=== PATIENT | male | born 1980 | race Caucasian/White ===

== ENCOUNTER 2016-09-17 16:32 | Emergency (ER) | payer SELFPAY | END 2016-09-17 17:37 | disposition home or self-care (01) | LOC: ER 16:32 | DX: S61.412A Laceration without foreign body of left hand, initial encounter (principal); W26.8XXA Contact with other sharp object(s), not elsewhere classified, initial encounter ==

== ENCOUNTER 2016-09-18 15:50 | Emergency (ER) | payer SELFPAY | END 2016-09-18 17:16 | disposition home or self-care (01) | LOC: ER 15:50 | DX: S61.412D Laceration without foreign body of left hand, subsequent encounter (principal) ==